=== PATIENT | male | born 1955 | race Hispanic/Latino ===

== ENCOUNTER 2018-07-10 11:23 | Emergency (ER) | payer MEDICARE, MEDICAID ==
[~2018-07-10] VITALS: Ht 162.6 cm; Wt 93.0 kg
[2018-07-10] MEDS ORDERED: ASPIRIN81 MG PO (11:32)
[2018-07-10] MEDS ORDERED: METFORMIN850 MG PO (11:32)
[2018-07-10 11:50] VITALS: BP 128/79
== END 2018-07-10 11:55 | disposition home or self-care (01) ==
LOC: ED 11:23
PROC: 3E1B78Z Irrigation of Ear using Irrigating Substance, Via Natural or Artificial Opening (ICD-10-PCS; principal; 2018-07-10)
PROC: 3E1B78Z Irrigation of Ear using Irrigating Substance, Via Natural or Artificial Opening (ICD-10-PCS; 2018-07-10)
DX: H61.23 Impacted cerumen, bilateral (principal); E11.9 Type 2 diabetes mellitus without complications

== ENCOUNTER 2019-05-08 17:10 | Emergency (ER) | payer MEDICARE, OTHER ==
[~2019-05-08] VITALS: Ht 162.6 cm; Wt 90.0 kg
[~2019-05-08 17:10] MED LIST: ASPIRIN81 MG PO; METFORMIN850 MG PO
[2019-05-08] MEDS ORDERED: ATORVASTATIN CA40 MG PO (17:23)
[2019-05-08] MEDS ORDERED: GLIPIZIDE5 MG PO (17:23)
[2019-05-08] MEDS ORDERED: HYDROCO/APAP1 TA9 PO (17:24)
[2019-05-08] MEDS ORDERED: MOTRIN200 MG PO (17:25)
[2019-05-08] MEDS ORDERED: ACTOS15 MG PO (17:26)
[2019-05-08 18:12] VITALS: BP 139/65
== END 2019-05-08 18:18 | disposition home or self-care (01) ==
LOC: ED 17:10
DX: L76.21 Postprocedural hemorrhage of skin and subcutaneous tissue following a dermatologic procedure (principal); E11.9 Type 2 diabetes mellitus without complications; Y83.8 Other surgical procedures as the cause of abnormal reaction of the patient, or of later complication, without mention of misadventure at the time of the procedure; Z79.84 Long term (current) use of oral hypoglycemic drugs

== ENCOUNTER 2020-06-08 09:01 | Emergency (ER) | payer MEDICARE, OTHER ==
[~2020-06-08] VITALS: Ht 162.6 cm; Wt 100.0 kg
[~2020-06-08 09:01] MED LIST changes: +ACTOS15 MG PO; +ATORVASTATIN CA40 MG PO; +GLIPIZIDE5 MG PO; +HYDROCO/APAP1 TA9 PO; +MOTRIN200 MG PO
[2020-06-08 10:09] LABS: HEMOGLOBIN 13.8 g/dl (14.0-18.0); IMMATURE GRANULOCYTES 0.2 % (0.0-5.0); MEAN CELL VOLUME 86.9 fL CALC (80.0-100.0); MEAN CORPUSCULAR HGB 29.2 pG CALC (26.0-32.0); MEAN CORPUSCULAR HGB CONC 33.7 g/dL CAL (32.0-36.0); NEUT# 4.9 thou/uL (1.82-7.42); RED BLOOD COUNT 4.72 mill/uL (4.70-6.10); RED CELL DISTRI WIDTH 13.2 % (11.5-15.5)
[2020-06-08 10:33] LABS: ALBUMIN 4.1 g/dL (3.2-5.0); ALKALINE PHOSPHATASE 83 u/l (38-126); ANION GAP 13 (6-22 (CALC)); BILIRUBIN, TOTAL 0.5 mg/dL (0.0-1.4); BUN 7 mg/dL (8-23); BUN/CREATININE RATIO 11 (12-20 (CALC)); CARBON DIOXIDE 23 mmol/l (22-30); CHLORIDE 103 mmol/l (95-108); CREATININE 0.6 mg/dL (0.7-1.3); GFR > 60 ML/MIN (>=60 (CALC)); GFR FOR AFR.AMER. > 60 ML/MIN (>=60 (CALC)); POTASSIUM 4.2 mmol/l (3.5-5.1); SGOT/AST 20 u/l (19-48); SODIUM 135 mmol/l (137-146); TOTAL PROTEIN 7.3 g/dL (6.3-8.2)
[2020-06-08] MEDS ORDERED: AMOX/K CLAV875 M1 PO (11:06)
[2020-06-08] MEDS ORDERED: RHINOCORT NAB (11:06)
[2020-06-08 11:16] VITALS: BP 148/81
== END 2020-06-08 11:16 | disposition home or self-care (01) ==
LOC: ED 09:01
DX: J01.90 Acute sinusitis, unspecified (principal); E11.9 Type 2 diabetes mellitus without complications; Z79.84 Long term (current) use of oral hypoglycemic drugs; Z20.828 Contact with and (suspected) exposure to other viral communicable diseases